=== PATIENT | male | born 1990 | race Caucasian/White ===

== ENCOUNTER 2018-04-25 06:33 | Emergency (ER) | payer MEDICAID ==
[~2018-04-25] VITALS: Ht 172.7 cm; Wt 63.5 kg
[2018-04-25 06:33] VITALS: BP 164/87
--- NOTE | 2018-04-25 06:33 | NUR ---
0616 Called to go out to parking lot for w/c assist. Pt was on ground with 2 friends assisting him. Pt was having tonic/clonic type sx. Resp very deep. Skin warm and diaphoretic. Unresponsive. After sz ended pt responsive to pain and withdrew. Friends stated they only knew him by the name of "Nikolay". Protected from injury and airway patency until sz subsided. Brought in to ER to bed 10 with w/c. Notified Dr Hewitt.
--- NOTE | 2018-04-25 06:33 | NUR ---
PT TAKEN TO BED 10
--- NOTE | 2018-04-25 06:33 | NUR ---
28/M dropped off in the ER lobby for seizures. Unable to obtain full history during assessment as patient is not responding to questions. GCS 15. Airway intact. Addendum: 04/25/18 at 0644 by BURKE pt post-ictal during assessment. No signs of oral trauma. No incontinence noted. Pt placed on bedside monitor.
--- NOTE | 2018-04-25 06:35 | NUR ---
Dr. Hewitt evaluating patient at bedside.
[2018-04-25] MEDS ORDERED: LORazepam 2 MG/ML VIAL ONE (06:44)
[2018-04-25] MEDS ORDERED: LORazepam 2 MG/ML VIAL IVP ONE (06:50)
--- NOTE | 2018-04-25 07:05 | NUR ---
Pt report given to MEGAN VERMA. Transfer of care at this time.
--- NOTE | 2018-04-25 07:05 | NUR ---
Received report from Jia VERMA. Patient ao but drowsy. VSS. NAD. Seizure and safety precautions in place. Will continue to monitor.
[2018-04-25] MEDS ORDERED: NACL 0.9% 1,000 ML IV ONE (07:37)
--- NOTE | 2018-04-25 07:50 | NUR ---
xray by bedside
[2018-04-25 07:56] LABS: BASOPHILS % (AUTO) 0.3 % (0.0-2.0); EOSINOPHILS % (AUTO) 0.1 % (0.0-4.0); HEMATOCRIT 46.9 % (36-52); HEMOGLOBIN 14.8 g/dL (12.0-18.0); LYMPHOCYTES # (AUTO) 1.9 K/uL (2.0-11.5); LYMPHOCYTES % (AUTO) 14.8 % (20.5-51.1); MEAN CORPUSCULAR HEMOGLOBIN 27 pg (27-31); MEAN CORPUSCULAR HGB CONC 32 g/dL (33-37); MEAN CORPUSCULAR VOLUME 85.2 fL (80-94); MONOCYTES # (AUTO) 0.8 K/uL (0.8-1.0); MONOCYTES % (AUTO) 6.6 % (1.7-9.3); NEUTROPHILS # (AUTO) 9.9 K/uL (1.8-7.7); NEUTROPHILS % (AUTO) 78.2 % (42.2-75.2); PLATELET COUNT (AUTO) 215 K/uL (140-450); RED CELL DISTRIBUTION WIDTH 13.9 % (11.6-13.7); WHITE BLOOD COUNT (AUTO) 12.7 K/uL (4.8-10.8)
[2018-04-25 08:02] LABS: ANION GAP 29.8 (8-16); CARBON DIOXIDE 11.5 mmol/L (21-32); CREATININE 1.3 mg/dL (0.7-1.3); POTASSIUM 3.3 mmol/L (3.5-5.1)
--- NOTE | 2018-04-25 08:02 | NUR ---
pt to ct via [facility] accompanied by chemical engineering technician
[2018-04-25 08:08] LABS: ALBUMIN 3.9 g/dL (3.4-5.0); TOTAL BILIRUBIN 2.1 mg/dL (0.0-1.0)
--- NOTE | 2018-04-25 08:11 | NUR ---
pt returned from ct to rm 10 without incident. vss. nad.
--- NOTE | 2018-04-25 09:00 | NUR ---
patient able to use urinal by bedside with steady gait. ua collected and sent to lab. vss. nad. will continue to monitor.
[2018-04-25 09:20] LABS: APPEARANCE,URINE CLEAR (CLEAR); BILIRUBIN,URINE NEGATIVE (NEGATIVE); BLOOD, URINE 3+ (NEGATIVE); COLOR,URINE YELLOW (YELLOW); LEUKOCYTE ESTERASE ,URINE NEGATIVE (NEGATIVE); NITRITE, URINE NEGATIVE (NEGATIVE); PH,URINE 5.5 (5.0-9.0); UGLUCOSE NEGATIVE (NEGATIVE)
[2018-04-25 09:27] LABS: BARBITURATE, URINE NEG. ng/ml (NEG <=200); BENZODIAZEPINE, URINE NEG. ng/mL (NEG <=200); CANNABINOID, URINE POS. ng/mL (NEG <=50); COCAINE, URINE NEG. ng/mL (NEG <=300); OPIATE, URINE NEG. ng/mL (NEG <=2000); PHENCYCLIDINE SCREEN,URINE NEG. ng/mL (NEG <=25)
[2018-04-25 09:29] LABS: HYALINE CASTS, URINE 0-2 /LPF (None Seen); RBC,URINE 3-10 (FEW) /HPF (0-5); WBC,URINE 0-5 (RARE) /HPF (0-5)
[2018-04-25 10:09] LABS: MAGNESIUM 1.9 mg/dL (1.8-2.4)
[2018-04-25 10:10] LABS: ACETONE, SERUM NEGATIVE (NEGATIVE)
[2018-04-25 11:00] VITALS: BP 149/83
--- NOTE | 2018-04-25 11:00 | NUR ---
Patient discharged with v/s stable. Written and verbal after care instructions given and explained. Patient alert, oriented and verbalized understanding of instructions. Ambulatory with steady gait. All questions addressed prior to discharge. ID band removed. Patient advised to follow up with PMD. Rx of Vistaril given. Patient educated on indication of medication including possible reaction and side effects. Opportunity to ask questions provided and answered.
== END 2018-04-25 11:00 | disposition home or self-care (01) ==
LOC: MED 06:33 → EDBD 06:33 → MED 11:00
DX: G40.89 Other seizures (principal); F19.10 Other psychoactive substance abuse, uncomplicated; F10.20 Alcohol dependence, uncomplicated
CPT/HCPCS: 36415; 70450; 71045; 80053; 80305; 81001; 82009; 83605; 83735; 84484; 85025; 96374; 99285; G0482; J2060; J7030; Q0092

== ENCOUNTER 2020-08-03 08:22 | Emergency (ER) | payer MEDICAID ==
[~2020-08-03] VITALS: Ht 175.3 cm; Wt 72.6 kg
[2020-08-03] MEDS ORDERED: NACL 0.9% 1,000 ML IV ONE (08:35)
[2020-08-03 08:38] VITALS: BP 107/61
[2020-08-03 09:01] LABS: BASOPHILS # (AUTO) 0.1 K/uL (0.00-0.22); BASOPHILS % (AUTO) 1.8 % (0.0-2.0); EOSINOPHILS % (AUTO) 0.7 % (0.0-4.0); HEMATOCRIT 42.3 % (36-52); LYMPHOCYTES # (AUTO) 1.8 K/uL (2.0-11.5); LYMPHOCYTES % (AUTO) 40.3 % (20.5-51.1); MEAN CORPUSCULAR HEMOGLOBIN 28 pg (27-31); MEAN CORPUSCULAR HGB CONC 33 g/dL (33-37); MEAN CORPUSCULAR VOLUME 85.6 fL (80-94); MONOCYTES # (AUTO) 0.5 K/uL (0.8-1.0); MONOCYTES % (AUTO) 11.9 % (1.7-9.3); NEUTROPHILS # (AUTO) 2.1 K/uL (1.8-7.7); NEUTROPHILS % (AUTO) 45.3 % (42.2-75.2); PLATELET COUNT (AUTO) 323 K/uL (140-450); RED BLOOD CELL COUNT(AUTO) 4.94 MIL/uL (4.20-6.10); RED CELL DISTRIBUTION WIDTH 16.8 % (11.6-13.7); WHITE BLOOD COUNT (AUTO) 4.5 K/uL (4.8-10.8)
[2020-08-03 09:18] LABS: ALBUMIN 4.2 g/dL (3.4-5.0); ASPARTATE AMINOTRANSFERASE 33 U/L (15-37); CHLORIDE 103 mmol/L (98-107); CREATININE 1.1 mg/dL (0.6-1.3); GFR ARICAN-AMERICAN 100 mL/min (>90); GLUCOSE 117 mg/dL (74-106); POTASSIUM 3.2 mmol/L (3.5-5.1); SODIUM SERUM 141 mmol/L (136-145); UREA NITROGEN, BLOOD 12 mg/dL (7-18)
[2020-08-03 09:20] LABS: ACETONE, SERUM NEGATIVE (NEGATIVE)
[2020-08-03 09:26] LABS: ANION GAP 16.7 (8-16); CARBON DIOXIDE 24.5 mmol/L (21-32)
[2020-08-03 13:03] VITALS: BP 123/75
--- NOTE | 2020-08-03 13:04 | NUR ---
PT WAS ROAD TESTED AND WAS ABLE TO WALK WITHOUT ASSISTANCE. PT DID NOT WANT US TO CALL ANYONE TO PICK HIM UP.
--- NOTE | 2020-08-03 13:05 | NUR ---
Patient discharged with v/s stable. Written and verbal after care instructions given and explained. Patient verbalized understanding. Ambulatory with steady gait. All questions addressed prior to discharge. Advised to follow up with PMD.
== END 2020-08-03 13:05 | disposition home or self-care (01) ==
LOC: MED 08:22
DX: F10.129 Alcohol abuse with intoxication, unspecified (principal); Y90.5 Blood alcohol level of 100-119 mg/100 ml
CPT/HCPCS: 36415; 80053; 82009; 85025; 96360; 99283; G0482; J7030

== ENCOUNTER 2021-02-03 22:36 | Emergency (ER) | payer MEDICAID ==
[~2021-02-03] VITALS: Ht 170.2 cm; Wt 74.8 kg
[2021-02-03 22:40] VITALS: BP 133/84
--- NOTE | 2021-02-03 22:40 | NUR ---
FRANCI ALLEN TAKEN TO BED #5
--- NOTE | 2021-02-03 22:43 | NUR ---
30 Y/O PATIENT BIBA WITH ETOH INTOXICATION. EMT STATES, "WE FOUND HIM ON [place], LAYING ON THE FLOOR DRUNK. HE IS RESPONSIVE WHEN ASKED WITH HIS NAME. WE REALLY DONT KNOW WHAT EXACTLY HAPPENED". SKIN IS PINK/WARM/DRY; AAOX4 WITH EVEN AND STEADY GAIT; LUNGS CLEAR BL; HR EVEN AND REGULAR; PT DENIES ANY FEVER, CP, SOB, OR COUGH AT THIS TIME; PATIENT STATES PAIN OF 0/10 AT THIS TIME; VSS; PATIENT POSITIONED FOR COMFORT; HOB ELEVATED; BEDRAILS UP X2; BED DOWN. ER MD MADE AWARE OF PT STATUS. JACQUELYN
--- NOTE | 2021-02-03 22:45 | NUR ---
ENCOURAGED PT TO VOID AND GIVE URINE BUT PT REFUSED. ERMD MADE AWARE
--- NOTE | 2021-02-04 | NUR ---
Patient being evaluated by physician at bedside.
[2021-02-04 00:15] LABS: BASOPHILS # (AUTO) 0.1 K/uL (0.00-0.22); BASOPHILS % (AUTO) 1.2 % (0.0-2.0); EOSINOPHILS # (AUTO) 0.3 K/uL (0-0.4); EOSINOPHILS % (AUTO) 5.4 % (0.0-4.0); HEMATOCRIT 41.6 % (36-52); HEMOGLOBIN 13.5 g/dL (12.0-18.0); LYMPHOCYTES % (AUTO) 41.8 % (20.5-51.1); MEAN CORPUSCULAR HEMOGLOBIN 27 pg (27-31); MEAN CORPUSCULAR HGB CONC 32 g/dL (33-37); MEAN CORPUSCULAR VOLUME 83.4 fL (80-94); MONOCYTES # (AUTO) 0.5 K/uL (0.8-1.0); MONOCYTES % (AUTO) 10.4 % (1.7-9.3); NEUTROPHILS # (AUTO) 1.9 K/uL (1.8-7.7); NEUTROPHILS % (AUTO) 41.2 % (42.2-75.2); PLATELET COUNT (AUTO) 296 K/uL (140-450); RED BLOOD CELL COUNT(AUTO) 4.99 MIL/uL (4.20-6.10); RED CELL DISTRIBUTION WIDTH 13.2 % (11.6-13.7); WHITE BLOOD COUNT (AUTO) 4.7 K/uL (4.8-10.8)
--- NOTE | 2021-02-04 00:17 | NUR ---
ENCOURAGED PT TO VOID AND GIVE URINE BUT PT REFUSED. ERMD MADE AWARE
[2021-02-04 00:34] LABS: ANION GAP 14.4 (8-16); CARBON DIOXIDE 26.2 mmol/L (21-32); POTASSIUM 3.6 mmol/L (3.5-5.1); TOTAL BILIRUBIN 0.7 mg/dL (0.0-1.0)
--- NOTE | 2021-02-04 04:23 | NUR ---
Patient appears to be resting comfortably in bed. Vital Signs within normal limits. Respirations even and unlabored.
--- NOTE | 2021-02-04 04:45 | NUR ---
collected urine from pt, sent to lab, handed to lizy garcía
[2021-02-04 04:55] VITALS: BP 125/82
[2021-02-04 05:34] LABS: BARBITURATE, URINE NEGATIVE ng/ml (NEG <=200); BENZODIAZEPINE, URINE NEGATIVE ng/mL (NEG <=200); CANNABINOID, URINE POSITIVE ng/mL (NEG <=50); COCAINE, URINE NEGATIVE ng/mL (NEG <=300); OPIATE, URINE NEGATIVE ng/mL (NEG <=2000); PHENCYCLIDINE SCREEN,URINE NEGATIVE ng/mL (NEG <=25)
== END 2021-02-04 04:55 | disposition home or self-care (01) ==
LOC: MED 22:36
DX: F10.129 Alcohol abuse with intoxication, unspecified (principal); G93.40 Encephalopathy, unspecified; R55 Syncope and collapse
CPT/HCPCS: 36415; 80053; 80305; 83690; 85025; 99283; G0482

== ENCOUNTER 2022-04-07 17:27 | Emergency (ER) | payer MEDICAID ==
[~2022-04-07] VITALS: Ht 170.2 cm; Wt 72.6 kg
[2022-04-07 17:38] VITALS: BP 182/94
[2022-04-07] MEDS ORDERED: NACL 0.9% 1,000 ML IV ONE (18:00)
--- NOTE | 2022-04-07 18:01 | NUR ---
pt walked out of er at this time
--- NOTE | 2022-04-07 18:05 | NUR ---
CALLED [facility] FOR PT DESCRIPTION
--- NOTE | 2022-04-07 18:21 | NUR ---
PATIENT LEFT WITHOUT BEING SEEN BY DR. KAUFMAN. NO FURTHER CARE PROVIDED FOR PATIENT.
== END 2022-04-07 18:21 | disposition left against medical advice (07) ==
LOC: MED 17:27
DX: R56.9 Unspecified convulsions (principal); Z53.21 Procedure and treatment not carried out due to patient leaving prior to being seen by health care provider

== ENCOUNTER 2022-04-07 19:21 | Emergency (ER) | payer MEDICAID ==
[~2022-04-07] VITALS: Ht 170.2 cm; Wt 72.6 kg
[2022-04-07 19:28] VITALS: BP 157/100
--- NOTE | 2022-04-07 19:58 | NUR ---
PT BROUGHT TO BED 6 VIA [facility]
--- NOTE | 2022-04-07 20:04 | NUR ---
Security at bedside.
--- NOTE | 2022-04-07 20:20 | NUR ---
Patient run out ER and security hamzah patient.
--- NOTE | 2022-04-07 20:21 | NUR ---
Called [facility].
--- NOTE | 2022-04-07 20:41 | NUR ---
[facility] brought patient back to bed 6.
[2022-04-07 22:18] LABS: BASOPHILS % (AUTO) 0.2 % (0.0-2.0); EOSINOPHILS % (AUTO) 0.1 % (0.0-4.0); HEMATOCRIT 40.6 % (36-52); HEMOGLOBIN 13.5 g/dL (12.0-18.0); LYMPHOCYTES # (AUTO) 0.2 K/uL (2.0-11.5); LYMPHOCYTES % (AUTO) 2.7 % (20.5-51.1); MEAN CORPUSCULAR HEMOGLOBIN 27 pg (27-31); MEAN CORPUSCULAR HGB CONC 33 g/dL (33-37); MEAN CORPUSCULAR VOLUME 80.9 fL (80-94); MONOCYTES # (AUTO) 0.8 K/uL (0.8-1.0); MONOCYTES % (AUTO) 10.1 % (1.7-9.3); NEUTROPHILS # (AUTO) 7.1 K/uL (1.8-7.7); NEUTROPHILS % (AUTO) 86.9 % (42.2-75.2); PLATELET COUNT (AUTO) 238 K/uL (140-450); RED BLOOD CELL COUNT(AUTO) 5.03 MIL/uL (4.20-6.10); RED CELL DISTRIBUTION WIDTH 14.5 % (11.6-13.7); WHITE BLOOD COUNT (AUTO) 8.2 K/uL (4.8-10.8)
--- NOTE | 2022-04-07 22:41 | NUR ---
Provided blankets as request.
[2022-04-07 22:45] LABS: ALBUMIN 3.6 g/dL (3.4-5.0); ANION GAP 14.9 (8-16); ASPARTATE AMINOTRANSFERASE 82 U/L (15-37); CARBON DIOXIDE 28.5 mmol/L (21-32); CHLORIDE 93 mmol/L (98-107); CREATININE 0.8 mg/dL (0.6-1.3); GFR ARICAN-AMERICAN 143 mL/min (>90); GLUCOSE 126 mg/dL (74-106); POTASSIUM 3.4 mmol/L (3.5-5.1); SODIUM SERUM 133 mmol/L (136-145); TOTAL BILIRUBIN 0.8 mg/dL (0.0-1.0); UREA NITROGEN, BLOOD 17 mg/dL (7-18)
[2022-04-07 22:55] LABS: SALICYLATE < 2.8 mg/dL (2.8-20.0)
[2022-04-07 22:56] LABS: ACETAMINOPHEN < 0.5 ug/ml (10-30)
[2022-04-07] MEDS: NACL 0.9% 1,000 ML IV ONE (22:56)
[2022-04-07] MEDS ORDERED: levETIRAcetam 100 MG/ML VIAL IV ONE (22:59)
[2022-04-07] MEDS: levETIRAcetam 1,000 MG in NACL 0.9% 100 ML IV ONE (23:00)
[2022-04-08] MEDS: LORazepam 2 MG/ML VIAL IVP ONE (01:35)
--- NOTE | 2022-04-08 01:40 | NUR ---
Hold medications per patient is sleeping.
--- NOTE | 2022-04-08 01:40 | NUR ---
Patient is sleeping
--- NOTE | 2022-04-08 02:25 | NUR ---
Patient appears to be resting comfortably in bed. Vital Signs within normal limits. Respirations even and unlabored.
[2022-04-08 02:34] LABS: BARBITURATE, URINE NEGATIVE ng/ml (NEG <=200); BENZODIAZEPINE, URINE NEGATIVE ng/mL (NEG <=200); COCAINE, URINE NEGATIVE ng/mL (NEG <=300)
[2022-04-08 02:35] LABS: CANNABINOID, URINE POSITIVE ng/mL (NEG <=50); OPIATE, URINE NEGATIVE ng/mL (NEG <=2000); PHENCYCLIDINE SCREEN,URINE NEGATIVE ng/mL (NEG <=25)
[2022-04-08] MEDS ORDERED: ACETAMINOPHEN EXTRA STRENGTH 500 MG TAB ONE (02:44)
[2022-04-08] MEDS: ACETAMINOPHEN EXTRA STRENGTH 500 MG TAB PO ONE (02:52)
--- NOTE | 2022-04-08 10:30 | NUR ---
REFER BACK TO PAPER CHART FOR PREVIOUS INTERVENTIONS
[2022-04-08 10:45] VITALS: BP 135/80
--- NOTE | 2022-04-08 11:35 | NUR ---
MD VENECIA RICH, AWAITING CALLBACK
--- NOTE | 2022-04-08 11:45 | NUR ---
CALL BACK RECEIVED FROM MD CUADRA. PENDING TELEPSYCH - APPRX 1HR
[2022-04-08] MEDS: diphenhydrAMINE 50 MG/ML VIAL IVP ONE (12:40)
--- NOTE | 2022-04-08 12:43 | NUR ---
PT ON TELEPSYCH CALL FOR EVALUATION
--- NOTE | 2022-04-08 16:20 | NUR ---
Patient discharged with v/s stable. Written and verbal after care instructions FOR SEIZURES given and explained. Patient verbalized understanding. Ambulatory with steady gait. All questions addressed prior to discharge. Advised to follow up with PMD.
== END 2022-04-08 16:20 | disposition home or self-care (01) ==
LOC: MED 19:21
DX: S00.01XA Abrasion of scalp, initial encounter (principal); R56.9 Unspecified convulsions; F12.90 Cannabis use, unspecified, uncomplicated; F17.290 Nicotine dependence, other tobacco product, uncomplicated; X58.XXXA Exposure to other specified factors, initial encounter; Y93.89 Activity, other specified; Y92.89 Other specified places as the place of occurrence of the external cause; Y99.8 Other external cause status
CPT/HCPCS: 36415; 70450; 80053; 80305; 85025; 93005; 96365; 99285; G0480; G0482; J1953; J7030

== ENCOUNTER 2023-09-11 22:07 | Emergency (ER) | payer MEDICAID, OTHER ==
[~2023-09-11] VITALS: Ht 170.2 cm; Wt 66.7 kg
[2023-09-11 22:16] VITALS: BP 102/54; RESP 16; TEMP 97.9; O2SAT 97
[2023-09-12 00:30] LABS: BASOPHILS % (AUTO) 0.9 % (0.0-2.0); EOSINOPHILS # (AUTO) 0.4 K/uL (0-0.4); EOSINOPHILS % (AUTO) 6.8 % (0.0-4.0); HEMATOCRIT 31.6 % (36-52); HEMOGLOBIN 10.4 g/dL (12.0-18.0); LYMPHOCYTES # (AUTO) 1.5 K/uL (2.0-11.5); LYMPHOCYTES % (AUTO) 28.9 % (20.5-51.1); MEAN CORPUSCULAR HEMOGLOBIN 26 pg (27-31); MEAN CORPUSCULAR HGB CONC 33 g/dL (33-37); MEAN CORPUSCULAR VOLUME 79.5 fL (80-94); MONOCYTES # (AUTO) 0.5 K/uL (0.8-1.0); MONOCYTES % (AUTO) 10.1 % (1.7-9.3); NEUTROPHILS # (AUTO) 2.9 K/uL (1.8-7.7); NEUTROPHILS % (AUTO) 53.3 % (42.2-75.2); PLATELET COUNT (AUTO) 292 K/uL (140-450); RED BLOOD CELL COUNT(AUTO) 3.98 MIL/uL (4.20-6.10); RED CELL DISTRIBUTION WIDTH 14.8 % (11.6-13.7); WHITE BLOOD COUNT (AUTO) 5.4 K/uL (4.8-10.8)
[2023-09-12 00:47] LABS: ALBUMIN 2.8 g/dL (3.4-5.0); ANION GAP 11.4 (8-16); CALCIUM 7.8 mg/dL (8.5-10.1); CARBON DIOXIDE 29.2 mmol/L (21-32); CREATININE 0.6 mg/dL (0.6-1.3); POTASSIUM 3.6 mmol/L (3.5-5.1); TOTAL BILIRUBIN 0.4 mg/dL (0.0-1.0)
[2023-09-12 01:29] VITALS: BP 127/66; PULSE 90; RESP 16; O2SAT 93
== END 2023-09-12 06:36 | disposition home or self-care (01) ==
LOC: MED 22:07
DX: S80.212A Abrasion, left knee, initial encounter (principal); F10.129 Alcohol abuse with intoxication, unspecified; G82.20 Paraplegia, unspecified; Z86.69 Personal history of other diseases of the nervous system and sense organs; Y90.6 Blood alcohol level of 120-199 mg/100 ml; W18.39XA Other fall on same level, initial encounter; Y92.89 Other specified places as the place of occurrence of the external cause; Y93.89 Activity, other specified; Y99.8 Other external cause status
CPT/HCPCS: 36415; 73562; 80053; 85025; 90471; 90715; 99284; G0482; Q0092